=== PATIENT | female | born 1995 | race Two or more races ===

== ENCOUNTER 2024-01-06 13:47 | Outpatient (CLI) | payer OTHER | END 2024-01-06 13:55 | disposition home or self-care (01) | LOC: SONOGRAMA 13:47 → EDBD 13:47 → SONOGRAMA 13:55 | PROVIDERS: ATTEND Specialist | DX: N80.9 Endometriosis, unspecified (principal) ==

== ENCOUNTER 2024-01-07 08:44 | Outpatient (CLI) | payer OTHER ==
[2024-01-07 09:17] LABS: HEMATOCRIT 38.7 % (36.0-45.00); HEMOGLOBIN 13.1 g/dL (12.0-15.00); MEAN CELL VOLUME 80.2 fL (80.00-100.00); MEAN CORPUSCULAR HEMOGLOBIN 27.1 pg (27.00-32.0); MEAN CORPUSCULAR HGB CONC 33.8 g/dl (32.0-36.0); PLATELET COUNT 397 K/uL (150-450); RED BLOOD COUNT 4.82 M/uL (4.00-6.00); RED CELL DISTRIBUTION WIDTH 14.3 % (11.5-14.5)
[2024-01-07 09:22] LABS: URINE APPEARANCE Cloudy; URINE BILIRRUBIN Negative (NEGATIVE); URINE BLOOD Trace; URINE COLOR Dark Yellow; URINE GLUCOSE Negative (NEGATIVE); URINE LEUKOCYTE Negative; URINE NITRATE Negative; URINE PROTEIN Negative (NEGATIVE)
[2024-01-07 09:26] LABS: URINE BACTERIA 1325.4 uL (0.0-1933); URINE EPITHELIAL CELLS 66.3 uL (0.0-38.8); URINE RBC 45.8 uL (0.0-20.8); URINE WBC 17.1 uL (0.0-23.2)
[2024-01-07 09:52] LABS: ALBUMIN 3.5 gm/dL (3.4-5.0); ALKALINE PHOSPHATASE 52 U/L (50-136); ALT/SGPT 12 U/L (12-78); ANION GAP 7 (10.0-20.0); AST/SGOT 12 U/L (15-37); BLOOD UREA NITROGEN 12 mg/dL (7-18); BUN CREA RATIO 21 (7.0-25.0); CALCIUM 9.1 mg/dL (8.5-10.1); CARBON DIOXIDE 29 mEq/L (21-32); CHLORIDE 108 mmol/L (98-107); CHOL HDL RATIO 2.9 (0-5.0); CHOLESTEROL 184 mg/dL (0-200); CREATININE SERUM 0.57 mg/dL (0.55-1.02); GLUCOSE FASTING 93 mg/dL (65-100); HDL 64 mg/dl (40-60); LDL 109 mg/dl (0-130); OSMOLALITY SERUM 279 MOSM/KG (275-295); SODIUM 140 mmol/L (136-145); TOTAL PROTEIN 7.5 gm/dL (6.4-8.2); TRIGLYCERIDES 56 mg/dL (0-150); VLDL 11 (0-39)
[2024-01-07 09:55] LABS: C-REACTIVE PROTEIN 0.44 MG/DL (0.00-0.29)
[2024-01-07 10:25] LABS: T4 FREE 0.96 NG/ML (0.76-1.46); TSH 0.593 uIU/mL (0.358-3.74)
[2024-01-07 10:27] LABS: HCG QUANTITATIVE < 1 mUI/mL (1-3)
== END 2024-01-07 08:55 | disposition home or self-care (01) ==
LOC: LAB 08:44
PROVIDERS: ATTEND Specialist
DX: E03.9 Hypothyroidism, unspecified (principal); N39.9 Disorder of urinary system, unspecified; E11.65 Type 2 diabetes mellitus with hyperglycemia; E78.2 Mixed hyperlipidemia; D64.9 Anemia, unspecified; J45.998 Other asthma; N39.0 Urinary tract infection, site not specified; E11.21 Type 2 diabetes mellitus with diabetic nephropathy; Z33.1 Pregnant state, incidental